=== PATIENT | female | born 2000 | race Two or more races ===

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

== ENCOUNTER 2019-01-27 15:16 | Emergency (ER) | payer MEDICAID, OTHER ==
[~2019-01-27] VITALS: Ht 165.1 cm; Wt 65.8 kg
[2019-01-27] MEDS ORDERED: SODIUM CHLORIDE 0.9% 500 ML IV ONE (15:52)
[2019-01-27] MEDS ORDERED: methylPREDNISolone SOD SUCC 125 MG/2 ML VL IV ONE (16:00)
[2019-01-27] MEDS ORDERED: FAMOTIDINE 20 MG TAB PO ONE (16:00)
[2019-01-27] MEDS ORDERED: diphenhdrAMINE HCL 25 MG CAP PO ONE (16:00)
[2019-01-27 16:22] VITALS: BP 117/76
== END 2019-01-27 18:15 | disposition home or self-care (01) ==
LOC: ER 15:17
DX: O99.712 Diseases of the skin and subcutaneous tissue complicating pregnancy, second trimester (principal); L50.9 Urticaria, unspecified; T78.40XA Allergy, unspecified, initial encounter; Z3A.21 21 weeks gestation of pregnancy; X58.XXXA Exposure to other specified factors, initial encounter
CPT/HCPCS: 94761; 96374; 99283; J2930; J7040

== ENCOUNTER 2020-05-26 10:43 | Emergency (ER) | payer MEDICAID ==
[~2020-05-26] VITALS: Ht 165.1 cm; Wt 61.2 kg
[2020-05-26 10:56] VITALS: BP 127/67
== END 2020-05-26 12:20 | disposition home or self-care (01) ==
LOC: ER 10:43
DX: S16.1XXA Strain of muscle, fascia and tendon at neck level, initial encounter (principal); Z88.0 Allergy status to penicillin; Z88.1 Allergy status to other antibiotic agents; V86.59XA Driver of other special all-terrain or other off-road motor vehicle injured in nontraffic accident, initial encounter; Y93.89 Activity, other specified; Y92.488 Other paved roadways as the place of occurrence of the external cause; Y99.8 Other external cause status
CPT/HCPCS: 72040

== ENCOUNTER 2020-06-09 16:49 | Emergency (ER) | payer MEDICAID ==
[~2020-06-09] VITALS: Ht 165.1 cm; Wt 59.0 kg
[2020-06-09] MEDS ORDERED: KETOROLAC TROMETH 60MG/2ML VIAL IM ONE (17:15)
[2020-06-09 17:56] LABS: Urine Bacteria FEW /hpf (None Seen); Urine Blood Negative /uL (Negative); Urine Mucus MODERATE (None Seen); Urine Specific Gravity 1.028 (1.001-1.035); Urine WBC 122 /hpf (0 - 5)
[2020-06-09 19:10] VITALS: BP 120/82
== END 2020-06-09 19:55 | disposition home or self-care (01) ==
LOC: ER 16:49
DX: F41.9 Anxiety disorder, unspecified (principal); N39.0 Urinary tract infection, site not specified; R51 Headache
CPT/HCPCS: 70450; 81001; 81025; 82962; 96372; 99284; J1885